=== PATIENT | male | born 1985 | race Caucasian/White ===

== ENCOUNTER 2024-07-16 23:26 | Emergency (ER) | payer OTHER ==
[~2024-07-16 23:26] MED LIST: Iopamidol 370 76% 100 ML VIAL ONE
[2024-07-17 00:02] LABS: #Basophils 0.03 10x3/uL (0.0-0.2); #Neutrophils 11.04 10x3/uL (1.5-8.4); %Basophils 0.2 % (0.0-2.0); %Lymphocytes 7.6 % (18.0-47.0); %Monocytes 3.2 % (0.0-10.0); %Neutrophils 88.6 % (40.0-75.0); Hematocrit 39.3 % (38.8-50.0); Hemoglobin 13.3 g/dL (13.5-17.5); Mean Corpuscular HGB CONC 33.8 g/dL (32.0-36.0); Mean Corpuscular Hemoglobin 29.8 pg (27.0-33.0); Mean Corpuscular Volume 88.1 fL (81.2-95.1); Mean Platelet Volume 10.9 fL (7.4-10.4); Platelet Count 257 10x3/uL (150-450); RBC Distribution Width 14.3 % (11.5-14.5); Red Blood Cell (RBC) Count 4.46 10x6/uL (4.32-5.72); White Blood Cell (WBC) Count 12.5 10x3/uL (3.5-10.5)
[2024-07-17 00:22] LABS: Acetaminophen Less than 10 mcg/mL (Less than 10); Alcohol Less than 10.0 mg/dL (Less than 10); Lipase 19 U/L (8-78); Magnesium 1.7 mg/dL (1.6-2.6); Salicylate Less than 8.0 mg/dL (Less than 8.0)
[2024-07-17 00:23] LABS: ALT (SGPT) 22 U/L (8-55); AST (SGOT) 17 U/L (5-34); Albumin 3.9 g/dL (3.5-5.0); Alkaline Phosphatase 62 U/L (40-110); Anion Gap 17 mmol/L (10-20); Bilirubin, Total 0.7 mg/dL (0.2-1.2); Calc. Creatinine Clearance 0 mL/min (70-130); Calcium 9.4 mg/dL (7.8-10.44); Carbon Dioxide 19 mmol/L (22-29); Chloride 101 mmol/L (98-107); Estimated GFR 114; Glucose 128 mg/dL (70-105); Potassium 5.1 mmol/L (3.5-5.1); Protein, Total 7.9 g/dL (6.0-8.3); Sodium 132 mmol/L (136-145)
[2024-07-17] MEDS ORDERED: Ondansetron PF 4 MG/2 ML Vial ONE ×2 (00:23→01:57)
[2024-07-17] MEDS ORDERED: Morphine 4 MG/ML VIAL ONE (00:23)
[2024-07-17] MEDS ORDERED: Famotidine/PF 20 mg/2ml Vial ONE (00:23)
[2024-07-17 00:35] LABS: BUN (Urea Nitrogen) 10 mg/dL (8.9-20.6)
[2024-07-17 00:42] LABS: Amphetamine Not Detected (NotDetected); Barbiturates Screen Not Detected (NotDetected); Benzodiazepine Screen Not Detected (NotDetected); Cocaine Metabolite Screen Not Detected (NotDetected); Methadone Not Detected (NotDetected); Methamphetamine Not Detected (NotDetected); Opiate Screen Not Detected (NotDetected); Oxycodone Screen Not Detected (NotDetected); Phencyclidine (PCP) Not Detected (NotDetected); THC/Cannabinoid Screen Not Detected (NotDetected); Tricyclic Screen Not Detected (NotDetected)
== END 2024-07-17 02:57 ==
LOC: CSHERS 23:26
DX: T43.222A Poisoning by selective serotonin reuptake inhibitors, intentional self-harm, initial encounter (principal); T44.3X2A Poisoning by other parasympatholytics [anticholinergics and antimuscarinics] and spasmolytics, intentional self-harm, initial encounter; I10 Essential (primary) hypertension; Z55.6 Problems related to health literacy
CPT/HCPCS: 36415; 71045; 74177; 80053; 80306; 80307; 83690; 83735; 85025; 93005; 96374; 96375; 96376; J2272; J2405; J3490; Q9967